=== PATIENT | female | born 1960 | race Caucasian/White ===

== ENCOUNTER 2024-04-25 12:22 | Outpatient (CLI) | payer BC | END 2024-04-25 12:23 | disposition home or self-care (01) | LOC: CSHMAMMO 12:22 | PROVIDERS: ATTEND Internal Medicine | DX: Z13.820 Encounter for screening for osteoporosis (principal); M85.851 Other specified disorders of bone density and structure, right thigh; M85.852 Other specified disorders of bone density and structure, left thigh | CPT/HCPCS: 77080 ==